=== PATIENT | male | born 1965 | race Hispanic/Latino ===

== ENCOUNTER 2019-07-31 07:40 | Day surgery (SDC) | payer MEDICARE ==
[2019-07-31] VITALS (18 sets, daily range): BP systolic 140–187; BP diastolic 50–94
[~2019-07-31] VITALS: Ht 166.6 cm; Wt 119.7 kg
[~2019-07-31 07:40] MED LIST: FENO145T26 PO; GLIP10TA9 PO; INSU100C14 SQ; INSU100V37 SQ; SUCR500T PO; TAMS0.4C32 PO
[2019-07-31 08:38] LABS: BASOPHILS % (AUTO) 0.9 % (0.0-5.0); EOSINOPHILS % (AUTO) 3.4 % (0.0-8.0); HEMATOCRIT 34.4 % (42-54); LYMPHOCYTES % (AUTO) 17.1 % (21.0-51.0); MEAN CORPUSCULAR HEMOGLOBIN 30.4 pg (27.0-33.0); MEAN CORPUSCULAR HGB CONC 31.4 g/dL (32.0-36.0); MEAN CORPUSCULAR VOLUME 96.9 fL (79-99); MONOCYTES % (AUTO) 9.7 % (3.0-13.0); NEUTROPHILS % (AUTO) 68.7 % (40.0-77.0); PLATELET COUNT (AUTO) 344 K/uL (130-400); RED BLOOD CELL COUNT(AUTO) 3.55 MIL/uL (4.50-6.20); RED CELL DISTRIBUTION WIDTH 13.8 % (11.0-15.5); WHITE BLOOD COUNT (AUTO) 8.1 K/uL (4.8-10.8)
[2019-07-31 08:53] LABS: INR 0.99 (0.85-1.15); PARTIAL THROMBOPLASTIN TIME 27.1 SEC (26.3-35.5); PROTHROMBIN TIME 10.7 SEC (9.6-11.6)
[2019-07-31 08:56] LABS: ALBUMIN 3.3 g/dL (3.5-5.0); BILIRUBIN,TOTAL 0.3 mg/dL (0.2-1.0); POTASSIUM 4.2 mmol/L (3.5-5.1)
[2019-07-31] MEDS ORDERED: SODIUM CHLORIDE 0.9% 1000ML 1,000 ML IV ONE (08:56)
[2019-07-31 08:59] LABS: CREATININE 12.6 mg/dL (0.5-1.5)
[2019-07-31] MEDS: CEFUROXIME SODIUM 1.5 GM VIAL ONE ×2 (09:27→13:41)
--- NOTE | 2019-07-31 09:40 | NUR ---
GLUCOMETER: DR. BUCKNER MADE AWARE OF GLUCOMETER RESULT OF 63, PATIENT ASYMPTOMATIC AND ORDERS GIVEN.
[2019-07-31] MEDS ORDERED: DEXTROSE 50%-WATER 25 GM/50 ML VIAL ONE ×2 (09:44→14:55)
--- NOTE | 2019-07-31 10:08 | NUR ---
POTENTIAL FOR INFECTION: CLIPPED LEFT ARM PER ERIKA MORILLO.
[2019-07-31] MEDS ORDERED: LIDOCAINE PF 2% 5ML ABBOJECT ONE (13:07)
[2019-07-31] MEDS ORDERED: SUCCINYLCHOLINE CHLORIDE 20 MG/ML 10 ML VIAL ONE (13:07)
[2019-07-31] MEDS ORDERED: ROCURONIUM 10MG/1ML SYR 10 MG/ML ML ONE (13:08)
[2019-07-31] MEDS ORDERED: PROPOFOL 10 MG/ML 20ML VIAL IV ONE ×2 (13:08→14:39)
[2019-07-31] MEDS ORDERED: FENTANYL CITRATE PF 50 MCG/1 ML 2ML VIAL ONE (13:11)
[2019-07-31] MEDS ORDERED: PHENYLEPHRINE HCL 10 MG/ML 1ML VIAL IV ONE (14:02)
[2019-07-31] MEDS ORDERED: NEOSTIGMINE 5MG/5ML SYR IV ONE (14:27)
[2019-07-31] MEDS ORDERED: GLYCOPYRROLATE 1 MG/5 ML SYRINGE ONE (14:27)
[2019-07-31] MEDS ORDERED: ONDANSETRON HCL 4 MG/2 ML VIAL ONE ×2 (14:28→15:32)
--- NOTE | 2019-07-31 15:55 | NUR ---
post op received pt post op. pt in no distress at this time does c/o nausea so place wet cold wash clothe to dorsal neck. pt arm sling to left arm . dressing kerlix clean and dry at this time. fingers warm to touch and good capillary refill. pt does have edema to hand and arm as per report pt had edema prior to surgery.
--- NOTE | 2019-07-31 17:00 | NUR ---
discharge pt instructions and script given. pt taken out via w/c in no distress.
== END 2019-07-31 17:00 | disposition home or self-care (01) ==
LOC: DAH 07:40
PROVIDERS: ATTEND Thoracic Surgery (Cardiothoracic Vascular Surgery)
DX: I12.0 Hypertensive chronic kidney disease with stage 5 chronic kidney disease or end stage renal disease (principal); E11.22 Type 2 diabetes mellitus with diabetic chronic kidney disease; N18.6 End stage renal disease; Z99.2 Dependence on renal dialysis; I45.10 Unspecified right bundle-branch block; Z98.890 Other specified postprocedural states; Z88.8 Allergy status to other drugs, medicaments and biological substances; Z88.0 Allergy status to penicillin; Z79.4 Long term (current) use of insulin; Z79.899 Other long term (current) drug therapy
CPT/HCPCS: 36415; 37607; 71046; 80053; 82948 ×6; 85025; 85610; 85730; 87070; 87076; 87205; 93005; 96374; A4213; A4215; A4216; A4221; A4222; A4223; A4649; A4663; A6207; A6446; C1713 ×2; J0330; J0697; J2001; J2370; J2405 ×2; J2704 ×2; J2710; J3010; J3490; J7030; J7040; J7070 ×2